=== PATIENT | female | born 1940 | race Caucasian/White ===

== ENCOUNTER 2016-12-27 09:49 | Emergency (ER) | payer MEDICARE, OTHER ==
--- NOTE | 2016-12-27 17:26 | ER ---
Date of Service: 12/27/2016 REASON FOR VISIT: Numbness and weakness of left leg. HISTORY: A 76-year-old white female presents ambulatory to the emergency room with the help of a cane for assessment of numbness in the left leg. Symptoms initially began on Friday when she was driving home from [place]. She felt like she was "drunk," felt dizzy, lightheaded, and off balanced, and had difficult time driving home, but did make it. No visual changes at that time. No hearing loss. No tinnitus. She went to the clinic on Friday to have this assessed and again felt dizzy on Friday, and was diagnosed with vertigo, but no workup was done and no scans were done. She was not given any specific medication. On Friday, she had some more episodes of vertigo, but less of a problem as they had been on Friday. However, she did cancel one of her outings on Friday. On , last evening, she was not feeling well and had another episode of vertigo. No nausea or vomiting. Then, she started noticing that her left foot felt weak and limp, and the foot was dragging a little bit. Symptoms seemed to go up toward the knee. She was able to get to sleep, but woke up this morning with persistent symptoms of the left leg and also had some transient symptoms of the right hand with numbness and tingling little bit with mild weakness. These hand symptoms lasted 10 to 15 minutes. It started about 0815 hours this morning. She continued to have some vertigo symptoms today. Her left leg symptoms have improved, pretty much resolved by the time she was here, although, she still has some decreased sensation. The right hand symptoms have resolved. MEDICATIONS: Prolia for osteoporosis, Tenormin 50 mg daily, hydrochlorothiazide 25 mg daily, lisinopril 20 mg daily, aspirin 81 mg daily, ibuprofen p.r.n., and vitamin D 1000 units daily. ALLERGIES: None known. PAST MEDICAL HISTORY: Includes hypertension, osteoporosis, right total knee arthroplasty, appendectomy, and some type of vascular surgery on her right lower extremity in 2014. REVIEW OF SYSTEMS: She denies chest pain or shortness of breath. No nausea or vomiting. She did have some diarrhea on Friday, however, that has resolved. She denies any facial weakness or droop. No speech impediments noted. Vision has been okay. She does have a little bit of congestion in her throat. Her bowels have been okay since Friday. No urinary symptoms. OBJECTIVE: General: She is alert and lying in bed. Vital Signs: Initial blood pressure was 182/68 and at the time of discharge it was 135/62, pulse was 61, temperature was 96.6, respirations 16, O2 sats 99%. HEENT: PERRLA, EOMI. TMs are negative. Throat is clear. Neck: No adenopathy. She has full range of motion without pain. Heart: Regular rate and rhythm. There is an occasional extra beat. No murmur heard. Lungs: Clear to auscultation. Abdomen: Soft and nontender. No masses palpable. Extremities: Warm and dry. No edema. Neurologic: Deep tendon reflexes are symmetrical. Motor function in all 4 extremities is normal. There is some decreased sensation of the right lower extremity from about the upper heath distally. Cranial nerves are intact. LABORATORY DATA: CT scan of her head noncontrast was done that showed mild small vessel disease on the left side, but no acute changes and no hemorrhage noted. EKG showed a normal sinus rhythm. On the rhythm strip, there is an occasional PAC. White count 4.6, hemoglobin 12.7. Sodium 132, potassium 4.2, creatinine is 1.2, magnesium is 1.6. LFTs are normal. ASSESSMENT: Acute neurologic changes, probable transient ischemic attack. PLAN: 1. The patient is reassured. I feel she is stable for discharge back to home environment. 2. Follow up with her primary provider, Dr. Turner, next week. 3. Recommend CT angiogram of her head and neck and also an MRI of her head to complete her evaluation. 4. Continue her home medications. 5. Call or return if any problems or concerns. Handout regarding TIA information given. FM: 12/27/2016 11:36:38 MODL: 12/27/2016 17:04:19 /[id number]
[2016-12-27 17:50] VITALS: BP 135/62
== END 2016-12-27 11:39 | disposition home or self-care (01) ==
LOC: VM.ED 09:49
DX: R29.818 Other symptoms and signs involving the nervous system (principal); I10 Essential (primary) hypertension; M81.0 Age-related osteoporosis without current pathological fracture; Z96.651 Presence of right artificial knee joint; Z79.899 Other long term (current) drug therapy; Z79.82 Long term (current) use of aspirin
CPT/HCPCS: 36415; 70450; 80053; 83735; 85025; 93005; 99284; 99284-GF

== ENCOUNTER 2016-12-30 10:21 | Emergency (ER) | payer MEDICARE, OTHER ==
[2016-12-30] MEDS ORDERED: Sodium Chloride 0.9% 10 ML Syringe FLUSH PRN (10:56)
--- NOTE | 2016-12-30 10:58 | EDM.PDOC ---
ED HPI GENERAL MEDICAL PROBLEM - General Chief Complaint: General Stated Complaint: foggy head and weak legs Time Seen by Provider: 12/30/16 10:32 Source of Information: Reports: Patient History Limitations: Reports: No limitations - History of Present Illness INITIAL COMMENTS - FREE TEXT/NARRATIVE: Patient seen last week in the clinic for similar symptoms. Was diagnosed with vertigo with no other follow up or work up noted. She was also seen 12/27 for one sided weakness and the provider at that time felt she may have had a TIA with no acute ischemia seen on head CT at that time. She does have a follow up appointment tomorrow with her primary doctor to have a referral for additional testing. Initial presentation of her blood pressure had her systolic numbers in the 180's. This was also elevated on Friday to a similar number. Former smoker. Onset Date: 12/24/16 Location: Reports: generalized Quality: Reports: Same as previous episode Severity: moderate Associated Symptoms: Reports: other (head feels fuzzy, legs feel weak bilaterally) - Related Data Allergies Allergy/AdvReac Type Severity Reaction Status Date / Time No Known Allergies Allergy Verified 12/30/16 10:36 Home Meds: Home Meds Aspirin [Adult Low Dose Aspirin EC] 81 mg PO DAILY 12/27/16 [History] Atenolol [Atenolol] 1 tab PO DAILY 12/27/16 [History] Cholecalciferol (Vitamin D3) [Vitamin D3] 1,000 unit PO DAILY 12/27/16 [History] Denosumab [Prolia] 1 dose SQ Q6M 12/27/16 [History] Hydrochlorothiazide [Hydrochlorothiazide] 1 tab PO DAILY 12/27/16 [History] Ibuprofen 200 mg PO ASDIRECTED PRN 12/27/16 [History] Lisinopril 20 mg PO DAILY 12/27/16 [History] Social & Family History - Tobacco Use Smoking Status *Q: Current Every Day Smoker Years of Tobacco use: 50 Packs/Tins Daily: 0.2 - Recreational Drug Use Recreational Drug Use: No ED ROS GENERAL - Review of Systems Review Of Systems: ROS reveals no pertinent complaints other than HPI. Constitutional: Reports: no symptoms HEENT: Reports: No symptoms Respiratory: Reports: No Symptoms Cardiovascular: Reports: No symptoms Endocrine: Reports: no symptoms GI/Abdominal: Reports: No symptoms : Reports: no symptoms Musculoskeletal: Reports: no symptoms Skin: Reports: no symptoms Neurological: Reports: Weakness, Other (lightheaded) Psychiatric: Reports: No symptoms Hematologic/Lymphatic: Reports: no symptoms Immunologic: Reports: no symptoms ED EXAM, GENERAL - Physical Exam Exam: See Below Exam Limited By: No limitations General Appearance: alert, WD/WN, no apparent distress Eye Exam: bilateral eye: EOMI, PERRL Ears: normal TMs Throat/Mouth: Normal inspection, Normal oropharynx Head: atraumatic, normocephalic Neck: normal inspection, supple, non-tender, full range of motion. No: carotid bruit Respiratory/Chest: no respiratory distress, lungs clear, normal breath sounds, no accessory muscle use, chest non-tender Cardiovascular: normal peripheral pulses, regular rate, rhythm, no edema, no gallop Peripheral Pulses: 2+: posterior tibial (L), posterior tibial (R), dorsalis pedis (L), dorsalis pedis (R) GI/Abdominal: normal bowel sounds, soft, non tender, no organomegaly Extremities: normal inspection, normal range of motion, normal capillary refill Neurological: alert, oriented, CN II-XII intact, normal cognition, normal gait, normal reflexes, no motor/sensory deficits Psychiatric: normal affect, normal mood Skin Exam: Warm, Dry, Intact, Normal color, No rash Lymphatic: no adenopathy Course - Vital Signs Last Recorded V/S: Last Vital Signs Temp 36.4 C 12/30/16 10:21 Pulse 70 12/30/16 11:12 Resp 18 12/30/16 11:12 BP 156/73 H 12/30/16 11:12 Pulse Ox 98 12/30/16 11:12 - Orders/Labs/Meds Orders: Active Orders 24 hr Category Date Time Status Sodium Chloride 0.9% [Normal Saline] 1,000 ml Med 12/30/16 11:00 Active IV ASDIRECTED Sodium Chloride 0.9% [Saline Flush] Med 12/30/16 10:56 Active 10 ml FLUSH ASDIRECTED PRN Saline Lock Insert [OM.PC] Routine Oth 12/30/16 10:56 Ordered Medication Orders Sodium Chloride (Normal Saline) 1,000 mls @ 999 mls/hr IV ASDIRECTED RICK Last Admin: 12/30/16 11:10 Dose: 999 mls/hr Sodium Chloride (Saline Flush) 10 ml FLUSH ASDIRECTED PRN PRN Reason: Keep Vein Open Labs: Laboratory Tests 12/30/16 12/30/16 12/30/16 Range/Units 10:58 10:58 10:58 WBC 5.8 (4.0-10.0) x10^3/uL RBC 4.60 (4.00-5.50) x10^6/uL Hgb 13.4 (12.0-16.0) g/dL Hct 39.3 (33.0-47.0) % MCV 85.4 (78.0-93.0) fL MCH 29.1 (26.0-32.0) pg MCHC 34.1 (32.0-36.0) g/dL RDW Coeff of Serg 13.7 (10.0-15.0) % Plt Count 345 (130-400) x10^3/uL Neut % (Auto) 64.7 (50.0-80.0) % Lymph % (Auto) 17.4 L (25.0-50.0) % [place] % (Auto) 16.4 H (2.0-11.0) % Eos % (Auto) 1.2 (0.0-4.0) % Baso % (Auto) 0.3 (0.2-1.2) % PT 9.5 L (10.0-12.8) SEC INR 0.8 L (2.0-3.5) D-Dimer, Quantitative 1.24 H (<=0.58) mg/LFEU Sodium 130 L (136-145) mmol/L Potassium 3.9 (3.5-5.1) mmol/L Chloride 95 L (98-107) mmol/L Carbon Dioxide 25 (21-32) mmol/L BUN 17 (7-18) mg/dL Creatinine 1.0 (0.55-1.02) mg/dL Est Cr Clr Drug Dosing TNP Estimated GFR (MDRD) 54 Glucose 94 (74-106) mg/dL Calcium 9.0 (8.5-10.1) mg/dL Corrected Calcium 9.48 (8.5-10.1) mg/dL Magnesium 1.6 L (1.8-2.4) mg/dL Total Bilirubin 0.3 (0.2-1.0) mg/dL AST 17 (15-37) U/L ALT 23 (14-59) U/L Alkaline Phosphatase 54 (46-116) U/L B-Natriuretic Peptide 343 (<=450) pg/mL Total Protein 7.0 (6.4-8.2) g/dL Albumin 3.4 (3.4-5.0) g/dL Globulin 3.6 Albumin/Globulin Ratio 0.94 Meds: Medications Generic Name Dose Route Start Last Admin Trade Name Freq PRN Reason Stop Dose Admin Sodium Chloride 1,000 mls @ 999 mls/hr 12/30/16 11:00 12/30/16 11:10 Normal Saline IV 999 mls/hr ASDIRECTED RICK Administration Sodium Chloride 10 ml 12/30/16 10:56 Saline Flush FLUSH ASDIRECTED PRN Keep Vein Open Discontinued Medications Generic Name Dose Route Start Last Admin Trade Name Freq PRN Reason Stop Dose Admin Magnesium Sulfate 2 gm/ Premix 50 mls @ 50 mls/hr 12/30/16 11:57 12/30/16 12: 18 IV 12/30/16 12:56 50 mls/hr ONETIME ONE Administration Magnesium Chloride 64 mg 12/30/16 11:56 12/30/16 12:13 Mag-64 PO 12/30/16 11:57 64 mg ONETIME ONE Administration Departure - Departure Time of Disposition: 13:38 Disposition: Home, Self-Care 01 Condition: fair Clinical Impression: Hypomagnesemia, Hypomagnesemia Instructions: Muscle Cramps and Spasms, [id number], Hypomagnesemia Forms: ED Department Discharge Additional Instructions: Follow up with GG in the morning as scheduled. One of the causes of low magnesium is the use of thiazide diuretics like the HCTZ so she may want to decide to reduce the dose and add a loop diuretic like lasix. Please talk to her regarding this. Some of your muscle complaints could be linked to this. Your sodium is also low. You should also have this monitored from time to time. Tests that you should consider for the prior possible TIA include MRI/MRA, carotid ultrasound, echocardiogram, CTA with contrast of the brain. Please call us with any questions or concerns in the meantime. - Problem List & Annotations (1) Hypomagnesemia SNOMED Code(s): 843000859 Code(s): E83.42 - HYPOMAGNESEMIA Status: Acute Priority: Medium Current Visit: Yes - Problem List Review Problem List Initiated/Reviewed/Updated: Yes - My Orders Last 24 Hours: My Active Orders 12/30/16 10:56 Sodium Chloride 0.9% [Saline Flush] 10 ml FLUSH ASDIRECTED PRN Saline Lock Insert [OM.PC] Routine 12/30/16 11:00 Sodium Chloride 0.9% [Normal Saline] 1,000 ml IV ASDIRECTED - Assessment/Plan Last 24 Hours: My Active Orders 12/30/16 10:56 Sodium Chloride 0.9% [Saline Flush] 10 ml FLUSH ASDIRECTED PRN Saline Lock Insert [OM.PC] Routine 12/30/16 11:00 Sodium Chloride 0.9% [Normal Saline] 1,000 ml IV ASDIRECTED Assessment:: Hypomagnesemia Plan: Follow up with GG in the morning as scheduled. One of the causes of low magnesium is the use of thiazide diuretics like the HCTZ so she may want to decide to reduce the dose and add a loop diuretic like lasix. Please talk to her regarding this. Some of your muscle complaints could be linked to this. Your sodium is also low. You should also have this monitored from time to time. Tests that you should consider for the prior possible TIA include MRI/MRA, carotid ultrasound, echocardiogram, CTA with contrast of the brain. Please call us with any questions or concerns in the meantime.
[2016-12-30] MEDS ORDERED: Sodium Chloride 0.9% 1,000 ML IV SCH (11:00)
[2016-12-30 11:33] LABS: CHLORIDE,CL 95 mmol/L (98-107); SODIUM,NA 130 mmol/L (136-145)
[2016-12-30] MEDS ORDERED: Magnesium Chloride 64 MG Tab.ER PO ONE (11:56)
[2016-12-30] MEDS ORDERED: Magnesium Sulfate/Water 2 GM in Premix Bag 1 BAG IV ONE (11:57)
[2016-12-30 13:27] VITALS: BP 129/62
== END 2016-12-30 13:38 | disposition home or self-care (01) ==
LOC: VM.ED 10:21
DX: E83.42 Hypomagnesemia (principal); F17.210 Nicotine dependence, cigarettes, uncomplicated; Z79.82 Long term (current) use of aspirin; Z79.899 Other long term (current) drug therapy
CPT/HCPCS: 80053; 83735; 83880; 85025; 85379; 85610; 96361; 96365; 99285; A9270; J7030; 99284-GF; J3475

== ENCOUNTER 2021-01-12 04:25 | Inpatient (IN) | payer MEDICARE, OTHER ==
[2021-01-12] MEDS ORDERED: Lactated Ringers 1,000 ML IV ONE (04:36)
[2021-01-12] MEDS ORDERED: predniSONE 20 MG Tab PO ONE (04:38)
--- NOTE | 2021-01-12 04:42 | EDM.PDOC ---
ED HPI GENERAL MEDICAL PROBLEM - General Chief Complaint: Skin Complaint Stated Complaint: Hives, near syncope, lightheaded Time Seen by Provider: 01/12/21 04:30 Source of Information: Reports: Patient, EMS History Limitations: Reports: No Limitations - History of Present Illness INITIAL COMMENTS - FREE TEXT/NARRATIVE: Patient comes emergency department today from home by ambulance with complaints of lightheadedness and a near syncopal episode. For the past 2 days the patient has noticed that she has had a rash kind of generalized throughout her chest arms and lower extremities. It is itchy in nature. She has been taking some Benadryl with assistance of the itching but the rash is not improved. She initially thought it was shingles but after researching it online she realized that it was most likely hives. She has had no changes in medications or new exposures to any irritants. She has no difficulty breathing shortness of breath tightness in her throat. She does chronically struggle with some lightheadedness upon standing although it does resolve shortly after standing. Although the past 2 to 3 days she has needed to walk around the house with a chair with casters on it because she is so lightheaded unsteady and weak. She has not had any chest pain shortness of breath or difficulty breathing. No cough or congestion. No palpitations. No irregular heartbeat. No abdominal pain nausea or vomiting. She has had a rash in her groin as well. No hematuria dysuria or urinary frequency. No black or tarry stools. No diarrhea. She does have a history of colitis. Tonight at approximately 3:00 she got up to go to the bathroom when she stood up she felt more lightheaded and she felt that she did not lose consciousness but was so weak and fell to the ground. She did not hit her head. There was no loss of conscious. She has no head neck or back pain. She did not have any palpitations or complaints prior to her syncope other than the lightheadedness. She relates that she typically drinks about 12 to 14 cups of coffee a day but she has not felt well the last couple of days and has only drink 2 cups of coffee. She has not drink much for fluids the past couple days as well. No Covid exposure no Covid symptoms. She has received her Covid vaccine. Hip Pain Score (Numeric/FACES): 3 - Related Data Allergies Allergy/AdvReac Type Severity Reaction Status Date / Time No Known Allergies Allergy Verified 09/01/18 13:26 Home Meds: Home Meds Aspirin [Adult Low Dose Aspirin EC] 81 mg PO DAILY 12/27/16 [History] Cholecalciferol (Vitamin D3) [Vitamin D3] 1,000 unit PO DAILY 12/27/16 [History] Loperamide [Imodium] 2 mg PO ASDIRECTED PRN MDD 8 caps 09/01/18 [History] atenoloL [Tenormin] 100 mg PO DAILY tablet 09/02/18 [Rx] Cyanocobalamin (Vitamin B-12) [Vitamin B-12] 1,000 mcg PO DAILY 01/12/21 [History] Gabapentin [Neurontin] 200 mg PO BEDTIME 01/12/21 [History] Magnesium Chloride [Slow-Mag] 71.5 mg PO DAILY 01/12/21 [History] atorvaSTATin [Lipitor] 10 mg PO BEDTIME 01/12/21 [History] Acetaminophen [Tylenol] 650 mg PO Q4H PRN tablet 01/16/21 [Rx] Famotidine [Pepcid] 20 mg PO DAILY #30 tablet 01/16/21 [Rx] Nystatin [Nystatin Crm] 0 gm TOP BID tube 01/16/21 [Rx] Potassium Chloride [Klor-Con 10] 20 meq PO WITHBREAKFAST #30 tab.er 01/16/21 [Rx] Sodium Chloride/KCl [Thermotabs] 1 each PO BID #60 tablet 01/16/21 [Rx] atenoloL [Tenormin] 25 mg PO DAILY #30 tablet 01/16/21 [Rx] hydrOXYzine HCL [hydrOXYzine] 25 mg PO Q4H PRN #50 tablet 01/16/21 [Rx] predniSONE See Taper PO WITHBREAKFAST #15 tablet 01/16/21 [Rx] Past Medical History Cardiovascular History: Reports: High Cholesterol, Hypertension Gastrointestinal History: Reports: Other (See Below) Other Gastrointestinal History: Colitis [employer] History: Reports: Musculoskeletal History: Reports: Osteoporosis Dermatologic History: Reports: Eczema - Infectious Disease History Infectious Disease History: Reports: Measles, Shingles - Past Surgical History Cardiovascular Surgical History: Reports: Varicose, Other (See Below) GI Surgical History: Reports: Appendectomy, Colonoscopy Female Surgical History: Reports: Oophorectomy Musculoskeletal Surgical History: Reports: Knee Replacement, Other (See Below) Other Musculoskeletal Surgeries/Procedures:: Both knees Dermatological Surgical History: Reports: None, Plastic Surgical Reconstruction/Repair Social & Family History - Family History Family Medical History: No Pertinent Family History - Caffeine Use Caffeine Use: Reports: Coffee ED ROS GENERAL - Review of Systems Review Of Systems: Comprehensive ROS is negative, except as noted in HPI. ED EXAM, SKIN/RASH Exam: See Below Exam Limited By: No Limitations General Appearance: Alert, WD/WN, No Apparent Distress Eye Exam: Bilateral Eye: EOMI, PERRL Ears: Normal External Exam, Normal TMs Nose: Normal Inspection Throat/Mouth: Normal Inspection (Other than quite dry. ) Head: Atraumatic, Normocephalic Neck: Normal Inspection, Supple, Non-Tender, Full Range of Motion. No: Tender Lateral, Tender Midline Respiratory/Chest: No Respiratory Distress, Lungs Clear, Normal Breath Sounds, No Accessory Muscle Use, Chest Non-Tender Cardiovascular: Normal Peripheral Pulses, Regular Rate, Rhythm Course - Vital Signs Last Recorded V/S: Last Vital Signs Temp 97 F 01/16/21 10:00 Pulse 64 01/16/21 10:00 Resp 18 01/16/21 05:10 BP 118/94 H 01/16/21 10:00 Pulse Ox 100 01/16/21 10:00 - Orders/Labs/Meds Labs: Laboratory Tests 01/12/21 01/12/21 01/12/21 Range/Units 04:46 04:46 04:46 WBC 10.0 (4.0-10.0) x10^3/uL RBC 4.63 (4.00-5.50) x10^6/uL Hgb 13.4 D (12.0-16.0) g/dL Hct 38.0 (33.0-47.0) % MCV 82.1 D (78.0-93.0) fL MCH 28.9 (26.0-32.0) pg MCHC 35.3 (32.0-36.0) g/dL RDW Coeff of Serg 13.7 (10.0-15.0) % Plt Count 416 H (130-400) x10^3/uL Add Manual Diff Yes Neutrophils % (Manual) 80 (50-80) % Band Neutrophils % 4 (0-6) % Lymphocytes % (Manual) 11 L (25-50) % Monocytes % (Manual) 4 (2-11) % Eosinophils % (Manual) 1 (0-4) % Platelet Estimate Adequate Sodium 120 L* (136-145) mmol/L Potassium 3.6 (3.5-5.1) mmol/L Chloride 86 L (98-107) mmol/L Carbon Dioxide 23 (21-32) mmol/L Anion Gap 14.6 (5-15) mmol/L BUN 30 H (7-18) mg/dL Creatinine 1.8 H (0.55-1.02) mg/dL Est Cr Clr Drug Dosing TNP Estimated GFR (MDRD) 27 Glucose 117 H (70-99) mg/dL Serum Osmolality (275-295) mosm/kg Lactic Acid 1.6 (0.4-2.0) mmol/L Calcium 8.5 (8.5-10.1) mg/dL Corrected Calcium 9.38 (8.5-10.1) mg/dL Magnesium (1.8-2.4) mg/dL Total Bilirubin 0.5 (0.2-1.0) mg/dL AST 15 (15-37) U/L ALT 20 (14-59) U/L Alkaline Phosphatase 52 (46-116) U/L Troponin I High Sens 20 (<=51) ng/L C-Reactive Protein 1.2 H (<=0.9) mg/dL Total Protein 5.8 L (6.4-8.2) g/dL Albumin 2.9 L (3.4-5.0) g/dL Globulin 2.9 Albumin/Globulin Ratio 1.00 Urine Color (YELLOW) Urine Appearance (CLEAR) Urine pH (5.0-8.0) Ur Specific Harshaw Urine Protein (NEGATIVE) mg/dL Urine Glucose (UA) (NEGATIVE) mg/dL Urine Ketones (NEGATIVE) mg/dL Urine Occult Blood (NEGATIVE) Urine Nitrite (NEGATIVE) Urine Bilirubin (NEGATIVE) Urine Urobilinogen (0.2) EU/dL Ur Leukocyte Esterase (NEGATIVE) Urine Osmolality (300-900) mosm/kg SARS CoV-2 RNA Rapid EZEKIEL (NEGATIVE) 01/12/21 01/12/21 01/12/21 Range/Units 04:46 04:46 05:08 WBC (4.0-10.0) x10^3/uL RBC (4.00-5.50) x10^6/uL Hgb (12.0-16.0) g/dL Hct (33.0-47.0) % MCV (78.0-93.0) fL MCH (26.0-32.0) pg MCHC (32.0-36.0) g/dL RDW Coeff of Serg (10.0-15.0) % Plt Count (130-400) x10^3/uL Add Manual Diff Neutrophils % (Manual) (50-80) % Band Neutrophils % (0-6) % Lymphocytes % (Manual) (25-50) % Monocytes % (Manual) (2-11) % Eosinophils % (Manual) (0-4) % Platelet Estimate Sodium (136-145) mmol/L Potassium (3.5-5.1) mmol/L Chloride (98-107) mmol/L Carbon Dioxide (21-32) mmol/L Anion Gap (5-15) mmol/L BUN (7-18) mg/dL Creatinine (0.55-1.02) mg/dL Est Cr Clr Drug Dosing Estimated GFR (MDRD) Glucose (70-99) mg/dL Serum Osmolality 252 L (275-295) mosm/kg Lactic Acid (0.4-2.0) mmol/L Calcium (8.5-10.1) mg/dL Corrected Calcium (8.5-10.1) mg/dL Magnesium 1.4 L (1.8-2.4) mg/dL Total Bilirubin (0.2-1.0) mg/dL AST (15-37) U/L ALT (14-59) U/L Alkaline Phosphatase (46-116) U/L Troponin I High Sens (<=51) ng/L C-Reactive Protein (<=0.9) mg/dL Total Protein (6.4-8.2) g/dL Albumin (3.4-5.0) g/dL Globulin Albumin/Globulin Ratio Urine Color Yellow (YELLOW) Urine Appearance Clear (CLEAR) Urine pH 6.0 (5.0-8.0) Ur Specific Harshaw 1.015 Urine Protein Negative (NEGATIVE) mg/dL Urine Glucose (UA) Negative (NEGATIVE) mg/dL Urine Ketones Negative (NEGATIVE) mg/dL Urine Occult Blood Negative (NEGATIVE) Urine Nitrite Negative (NEGATIVE) Urine Bilirubin Negative (NEGATIVE) Urine Urobilinogen 0.2 (0.2) EU/dL Ur Leukocyte Esterase Negative (NEGATIVE) Urine Osmolality (300-900) mosm/kg SARS CoV-2 RNA Rapid EZEKIEL (NEGATIVE) 01/12/21 01/12/21 Range/Units 05:08 05:19 WBC (4.0-10.0) x10^3/uL RBC (4.00-5.50) x10^6/uL Hgb (12.0-16.0) g/dL Hct (33.0-47.0) % MCV (78.0-93.0) fL MCH (26.0-32.0) pg MCHC (32.0-36.0) g/dL RDW Coeff of Serg (10.0-15.0) % Plt Count (130-400) x10^3/uL Add Manual Diff Neutrophils % (Manual) (50-80) % Band Neutrophils % (0-6) % Lymphocytes % (Manual) (25-50) % Monocytes % (Manual) (2-11) % Eosinophils % (Manual) (0-4) % Platelet Estimate Sodium (136-145) mmol/L Potassium (3.5-5.1) mmol/L Chloride (98-107) mmol/L Carbon Dioxide (21-32) mmol/L Anion Gap (5-15) mmol/L BUN (7-18) mg/dL Creatinine (0.55-1.02) mg/dL Est Cr Clr Drug Dosing Estimated GFR (MDRD) Glucose (70-99) mg/dL Serum Osmolality (275-295) mosm/kg Lactic Acid (0.4-2.0) mmol/L Calcium (8.5-10.1) mg/dL Corrected Calcium (8.5-10.1) mg/dL Magnesium (1.8-2.4) mg/dL Total Bilirubin (0.2-1.0) mg/dL AST (15-37) U/L ALT (14-59) U/L Alkaline Phosphatase (46-116) U/L Troponin I High Sens (<=51) ng/L C-Reactive Protein (<=0.9) mg/dL Total Protein (6.4-8.2) g/dL Albumin (3.4-5.0) g/dL Globulin Albumin/Globulin Ratio Urine Color (YELLOW) Urine Appearance (CLEAR) Urine pH (5.0-8.0) Ur Specific Harshaw Urine Protein (NEGATIVE) mg/dL Urine Glucose (UA) (NEGATIVE) mg/dL Urine Ketones (NEGATIVE) mg/dL Urine Occult Blood (NEGATIVE) Urine Nitrite (NEGATIVE) Urine Bilirubin (NEGATIVE) Urine Urobilinogen (0.2) EU/dL Ur Leukocyte Esterase (NEGATIVE) Urine Osmolality 319 (300-900) mosm/kg SARS CoV-2 RNA Rapid EZEKIEL Negative (NEGATIVE) Meds: Medications Discontinued Medications Generic Name Dose Route Start Last Admin Trade Name Freq PRN Reason Stop Dose Admin Acetaminophen 650 mg 01/12/21 08:53 01/15/21 07:50 Acetaminophen 325 Mg Tab PO 650 mg Q4H PRN Administration Pain (Mild 1-3)/fever Atenolol 100 mg 01/13/21 08:00 Atenolol 50 Mg Tab PO DAILY RICK Atenolol 25 mg 01/13/21 08:00 01/13/21 09:45 Atenolol 25 Mg Tab PO Not Given DAILY RICK Atenolol 50 mg 01/13/21 09:15 01/14/21 08:13 Atenolol 50 Mg Tab PO 50 mg DAILY RICK Administration Atenolol 25 mg 01/15/21 08:00 01/16/21 08:20 Atenolol 50 Mg Tab PO 25 mg DAILY RICK Administration Ceftriaxone Sodium 1 gm 01/12/21 05:10 01/12/21 05:23 Ceftriaxone 1 Gm Vial IVPUSH 01/12/21 05:11 1 gm STAT ONE Administration Diphenhydramine HCl 25 mg 01/12/21 12:00 01/16/21 08:23 Diphenhydramine 25 Mg Cap PO Not Given TID RICK Enoxaparin Sodium 40 mg 01/13/21 08:00 01/16/21 08:17 Enoxaparin 40 Mg/0.4 Ml Syringe SUBCUT 40 mg DAILY RICK Administration Famotidine 20 mg 01/12/21 09:00 01/16/21 08:20 Famotidine 20 Mg Tab PO 20 mg DAILY RICK Administration Gabapentin 200 mg 01/12/21 20:00 01/15/21 21:06 Gabapentin 100 Mg Cap PO 200 mg BEDTIME RICK Administration Hydroxyzine HCl 25 mg 01/16/21 08:09 01/16/21 08:24 Hydroxyzine Hcl 25 Mg Tab PO 25 mg Q4H PRN Administration Itching Lactated Ringer's 1,000 mls @ 999 mls/hr 01/12/21 04:36 01/12/21 04:54 Ringers, Lactated IV 01/12/21 05:36 999 mls/hr ONETIME ONE Administration Sodium Chloride 1,000 mls @ 999 mls/hr 01/12/21 05:07 01/12/21 05:14 Normal Saline IV 01/12/21 06:07 999 mls/hr ONETIME ONE Administration Magnesium Sulfate 2 gm in 50 mls @ 25 mls/hr 01/12/21 05:45 01/12/21 05:51 Magnesium Sulfate In Water 2 Gm/50 Ml IV 01/12/21 07:44 25 mls/hr ONETIME ONE Administration Sodium Chloride 1,000 mls @ 100 mls/hr 01/12/21 09:45 01/12/21 12:29 Normal Saline IV 01/12/21 19:44 100 mls/hr ASDIRECTED RICK Administration Sodium Chloride 500 mls @ 50 mls/hr 01/12/21 17:00 01/12/21 17:52 Sodium Chloride 3% IV 01/12/21 18:01 50 mls/hr ASDIRECTED RICK Administration Loperamide HCl 2 mg 01/12/21 08:49 Loperamide 2 Mg Cap PO ASDIRECTED PRN Diarrhea Magnesium Chloride 64 mg 01/13/21 08:00 01/16/21 08:19 Magnesium Chloride 64 Mg Tab.Er PO 64 mg DAILY RICK Administration Methylprednisolone Sodium Succinate 125 mg 01/12/21 05:17 01/12/21 05:21 Methylprednisolone Sodium Succinate 125 Mg/2 Ml Sdv IVPUSH 01/12/21 05:18 125 mg ONETIME ONE Administration Methylprednisolone Sodium Succinate 40 mg 01/14/21 10:15 01/15/21 07:48 Methylprednisolone Sodium Succinate 40 Mg/1 Ml Sdv IVPUSH 40 mg Q12HR RICK Administration Nystatin 0 gm 01/12/21 09:00 01/16/21 08:18 Nystatin Crm 30 Gm Tube TOP 1 dose BID RICK Administration Oral Electrolytes 1 each 01/12/21 17:00 01/16/21 08:18 Sodium Chloride/Potassium Chloride Tab PO 1 each BID RICK Administration Potassium Chloride 20 meq 01/13/21 13:22 01/16/21 08:19 Potassium Chloride 10 Meq Tab.Er PO 20 meq WITHBREAKFAST RICK Administration Prednisone 20 mg 01/12/21 04:38 01/12/21 08:02 Prednisone 20 Mg Tab PO 01/12/21 04:39 Not Given ONETIME ONE Prednisone 40 mg 01/15/21 08:30 01/16/21 08:19 Prednisone 20 Mg Tab PO 40 mg WITHBREAKFAST RICK Administration Sodium Chloride 10 ml 01/12/21 04:35 01/15/21 07:48 Sodium Chloride 0.9% 10 Ml Syringe FLUSH 10 ml ASDIRECTED PRN Administration Keep Vein Open - Re-Assessments/Exams Free Text/Narrative Re-Assessment/Exam: Patient's EKG is unchanged from previous. We did complete orthostatic blood pressures which were very clearly positive. She was unable to stand even long enough to get her blood pressure but her heart rate did increase. She was given a 500 mill bolus of lactated Ringer's. Laboratory evaluation shows a CBC with a WBC of 10.0 hemoglobin 13.4 and a platelet of 416. Sodium critically low at 120, potassium 3.6 chloride 86 creatinine 1.8 with a BUN of 30 this is slightly up from baseline of about 1.2-1.3. Serum osmolality is 252. Magnesium is 1.4 Urinalysis is negative Covid is negative as well. She has no signs of confusion or seizures although she does have a quite low sodium. She is also on hydrochlorothiazide which could be leading to her hyponatremia she has had hyponatremia in the past. I do not feel that she needs initially 3% hypertonic saline as her blood pressure is quite low and she could use some volume at this time. Her magnesium was replaced as well. Her blood pressure responded after a fluid bolus and then continued maintenance fluid. This patient needs close monitoring for her severe hyponatremia I called and spoke with Dr. Abundio Gaona HPI ER COURSE findings and concerns were relayed to her. She came and saw the patient in the ed and will admit for inpatient management. Departure - Departure Time of Disposition: 05:19 Disposition: Admitted As Inpatient 65 Clinical Impression: Acute hyponatremia, Nighat infection of genital region, Hives, Hypomagnesemia Hypotension Qualifiers: Hypotension type: unspecified hypotension type Qualified Code(s): I95.9 - Hypotension, unspecified [id number] kidney injury Qualifiers: Acute renal failure type: unspecified Chronic kidney disease stage: unspecified stage Qualified Code(s): N17.9 - Acute kidney failure, unspecified - Discharge Information Sepsis Event Note (ED) - Evaluation Sepsis Screening Result: No Definite Risk
--- NOTE | 2021-01-12 04:44 | PCM.EKG ---
#1 Interpretation EKG Date: 01/12/21 Time: 04:38 Rhythm: NSR Rate (Beats/Min): 65 [place]: Normal P-Wave: Present QRS: Normal ST-T: Normal QT: Normal Comparison: No Change
[2021-01-12] MEDS ORDERED: Sodium Chloride 0.9% 1,000 ML IV ONE (05:07)
[2021-01-12] MEDS ORDERED: cefTRIAXone 1 GM Vial IVPUSH ONE (05:10)
[2021-01-12] MEDS ORDERED: methylPREDNISolone Sodium Succinate 125 MG/2 ML SDV IVPUSH ONE (05:17)
[2021-01-12 05:23] LABS: CHLORIDE,CL 86 mmol/L (98-107)
[2021-01-12 05:25] LABS: ANION GAP 14.6 mmol/L (5-15); SODIUM,NA 120 mmol/L (136-145)
[2021-01-12] MEDS ORDERED: Magnesium Sulfate/Water 2 GM/50 ML BAG IV ONE (05:45)
--- NOTE | 2021-01-12 08:12 | CR ---
[id number] RAD/RAD Chest PA or AP 1V EXAM: RAD Chest PA or AP 1V INDICATION: HYPOTENSION COMPARISON: August 2018. DISCUSSION: Cardiomediastinal silhouette is normal in size and contour. Lungs are clear. No pleural effusion or pneumothorax. IMPRESSION: No acute findings. George Lambert MD 01/12/21 0810 Thank you for allowing us to participate in the care of your patient.
--- NOTE | 2021-01-12 08:12 | CR ---
[id number] RAD/RAD Pelvis 1V W 2V Left Hip Exam: RAD Pelvis 1V W 2V Left Hip Indication:FALL, LEFT HIP PAIN Comparison: No prior imaging for comparison. Discussion/Impression: Bones in normal alignment. No fracture, AVN, or erosive changes. Bilateral femoroacetabular osteoarthritis. Bone mineralization is normal. George Lambert MD 01/12/21 0810 Thank you for allowing us to participate in the care of your patient.
[2021-01-12] MEDS ORDERED: Loperamide 2 MG Cap PO PRN (08:49)
[2021-01-12 09:27] LABS: ANION GAP 12.6 mmol/L (5-15)
[2021-01-12] MEDS ORDERED: Sodium Chloride 0.9% 1,000 ML IV SCH (09:45)
[2021-01-12] MEDS: Nystatin Crm 30 GM Tube TOP SCH ×2 (11:34→19:54)
[2021-01-12] MEDS: diphenhydrAMINE 25 MG Cap PO SCH ×2 (11:35→19:52)
[2021-01-12] MEDS: Famotidine 20 MG Tab PO SCH (11:35)
[2021-01-12] MEDS ORDERED: Sodium Chloride 3% 500 ML IV SCH (17:00)
[2021-01-12] MEDS: Sodium Chloride/Potassium Chloride Tab PO SCH ×2 (17:46→19:52)
--- NOTE | 2021-01-12 19:23 | HP ---
CHIEF COMPLAINT: Fall with dizziness. HISTORY OF PRESENT ILLNESS: This is an 80-year-old female who normally lives at home independently, who had an episode of falling at home in her bathroom. She is not sure if she passed out or just got so dizzy, she sort of sat down. X- rays did not show any hip fracture. She is not having any other pain. She has really felt unwell for the last few days and has not been eating and drinking well, but no vomiting. She does have chronic diarrhea from colitis. No stomach pain, but she also interestingly did break out in full body hives. No trouble breathing. She tried some Benadryl and some probably meclizine just yesterday after checking with the drug store. The patient has not had any fever or chills. No burning with urination. She has had low sodium 131 last fall and has been on hydrochlorothiazide. When she arrived in the ER, really the main concern was a sodium of just 120, but she was significantly dehydrated. She got some IV fluids and plan was to recheck to see if she needed the 3% saline. The patient does tend to drink quite a bit of coffee in a day. She has had her COVID vaccine, but quite sometime ago like a month. ALLERGIES: None. MEDICATIONS: Her medication list are amlodipine 10 mg daily, atenolol 100 mg daily, Lipitor 10 mg at bedtime, Zestril 30 mg daily, hydrochlorothiazide 25 mg daily, Neurontin 200 mg at bedtime, vitamin B12 daily, aspirin 81 mg daily, SlowMag daily, Imodium as needed, and vitamin D daily. She has not made any recent med changes. MEDICAL HISTORY: Includes previous colon polyps; moderate carotid artery stenosis, but denies any history of stroke; essential hypertension; history of gait instability and questionable diffuse connective tissue disease; remote history of smoking, quit in 2017; hyponatremia, even sodium 130 back in 2014; hypomagnesemia, which was already replaced in the ER; multiple TIAs; obesity; osteoarthritis of the shoulder. She did have a cortisone shot last month, but has had those before. Senile osteoporosis; ulcerative colitis; peripheral arterial disease, status post balloon angioplasties of the right popliteal artery; postherpetic neuralgia; hemorrhoids; hyperlipidemia; vitamin D deficiency; vitamin B12 deficiency. PAST SURGICAL HISTORY: She has had bilateral knee replacements. She has had tubal ligation, appendectomy. SOCIAL HISTORY: The patient is . She is a retired personal banking officer. She has 2 children, but 1 daughter after some pituitary gland surgery. She is a nonsmoker. Denies any current alcohol use. Did previously smoke. FAMILY HISTORY: Both parents . Her mom had a leukemia and coronary disease. REVIEW OF SYSTEMS: General: She is unaware of any weight changes. No fever or chills. HEENT: No trouble swallowing. Cardiac: No chest pain. No palpitations. Respiratory: No cough. No shortness of breath. Musculoskeletal: She has had no new aches or pains. Neurologic: She has not felt confused, but she has felt dizzy. Abdomen: As stated in the HPI. Otherwise, all systems reviewed and found to be negative unless otherwise stated. PHYSICAL EXAMINATION: Vital Signs: When I examined the patient, her blood pressure was 91/33, it actually had been 60/31 in the ER. Her weight 89.8 kg, temp 97.3, pulse 62, respiratory rate 16, and O2 of 99% on room air. General: She is in no acute distress. Heart: Regular rate and rhythm. S1, S2 without murmur. Lungs: Sounds were clear to auscultation bilaterally without crackles or wheezes. Abdomen: Positive bowel sounds. Soft, nondistended, nontender. Extremities: Warm and dry. No edema. Mental Status: She is alert and orientated x3. She is polite. She is answering questions. Gait not observed, but later it was reported that even after the IV fluids were given, she was still dizzy. LABORATORY DATA: Her workup did not show any hip x-ray, no pneumonia. EKG was a sinus bradycardia. Her lab work did show her to have white count 10, hemoglobin 13.4, platelets 416, lymphocytes 11 low, eosinophils normal. Sodium 120, potassium 3.6, chloride 86, bicarb 23, BUN 30, creatinine 1.8, glucose 117, lactic 1.6, calcium 8.5, magnesium 1.4. Bilirubin, ALT, AST, alkaline phosphatase all normal. CRP 1.2, mildly elevated. Albumin 2.9. UA completely normal, negative. COVID test negative. ASSESSMENT AND PLAN: 1. Symptomatic hyponatremia. Given the patient was dehydrated and still hypotensive, we have stopped her hydrochlorothiazide. I will continue IV fluids for 1 more liter and repeat a sodium. If symptomatic, we will give her 3% saline 50 mL for 1 hour and recheck sodium every 4 hours to ensure no over-correction. 2. Essential hypertension, now with low blood pressures. I will hold all of her antihypertensives, except the atenolol, which I will decrease to 25 mg and monitor her with telemetry to ensure no bradycardia. 3. Fall, presumably due to the hyponatremia. If this does not improve, we will do further investigations. Otherwise, she can be up and working with therapies. 4. Generalized hives. She got the Solu-Medrol. She will be on prednisone 20 mg daily. We will give her Pepcid. We will give her Benadryl. 5. Deep venous thrombosis prophylaxis. She is on Lovenox. 6. Hypomagnesemia, replaced IV. She is also on oral. We will repeat tomorrow. 7. Colitis, longstanding. She will have her p.r.n. Imodium available. 8. Concern for sepsis. She did get Rocephin, however, no source of infection was found. No further antibiotics are indicated. The patient will be admitted for acute cares for electrolyte correction. Blood sugar was mildly elevated at 146, although nonfasting. Anticipate the patient will have at least a 2-night stay, but potentially will go home over the weekend. She is a code level 1. MKA: 01/12/2021 17:06:41 MODL: 01/12/2021 19:12:40 /[id number]
[2021-01-12] MEDS: Gabapentin 100 MG Cap PO SCH (19:52)
[2021-01-13 07:53] LABS: ANION GAP 12.4 mmol/L (5-15)
[2021-01-13] MEDS ORDERED: Atenolol 25 MG Tab PO SCH (08:00)
[2021-01-13] MEDS ORDERED: Atenolol 50 MG Tab PO SCH (08:00)
[2021-01-13] MEDS: Enoxaparin 40 MG/0.4 ML Syringe SUBCUT SCH (09:43)
[2021-01-13] MEDS: Famotidine 20 MG Tab PO SCH (09:44)
[2021-01-13] MEDS: diphenhydrAMINE 25 MG Cap PO SCH ×3 (09:44→19:57)
[2021-01-13] MEDS: Magnesium Chloride 64 MG Tab.ER PO SCH (09:45)
[2021-01-13] MEDS: Sodium Chloride/Potassium Chloride Tab PO SCH ×2 (09:45→19:57)
[2021-01-13] MEDS: Nystatin Crm 30 GM Tube TOP SCH ×2 (09:45→19:58)
[2021-01-13] MEDS: Atenolol 50 MG Tab PO SCH (09:58)
--- NOTE | 2021-01-13 14:18 | PN ---
Progress Note for [facility] Date: 01/13/2021 Room #: VM.215 SUBJECTIVE: This is hospital day #2 on an 80-year-old admitted with hyponatremia, dizziness, and a fall yesterday. The patient's sodium did not improve despite normal saline as she was quite dehydrated, so she did receive 50 mL of 3% saline last evening, and this morning, her sodium went up to 128, and she is feeling much better. She had been on hydrochlorothiazide, this was discontinued. Her WANG inhibitor was held. Her atenolol was decreased due to some bradycardia, and she has not had any events. She has not had any fevers. She was not found to have any infection. The patient did have significant hives on admission, however, those have all currently resolved. Her memory has been good. Her daughter is visiting and the patient is in pleasant spirits. OBJECTIVE: Vital Signs: Her temperature is 98.6, pulse 76, blood pressure 128/42, respiratory rate 16, O2 of 96% on room air. General: She is in no acute distress. Heart: Regular rate and rhythm. Lungs: Sounds are clear to auscultation bilaterally without crackles or wheezes. Extremities: Warm and dry. No edema. Mental Status: Alert and orientated x3. Skin: Does have some resolving hives spots noted, but 85% improved since yesterday. LABORATORY DATA: White count 12, increased slightly; hemoglobin 11; platelets 398. Sodium 128, potassium 3.4, chloride 96, bicarb 23, BUN 23, creatinine 1.2, glucose 119, calcium 8.1, magnesium 1.8. ASSESSMENT AND PLAN: 1. Severe hyponatremia, symptomatic, resolving with the 3% saline. Discussed with the patient to avoid excessive caffeine and hydrochlorothiazide. She needs no further fluids and recommended not to correct too quickly, and I feel that she is not doing that currently. We will keep her one more day and recheck her lab work tomorrow. 2. Essential hypertension. Blood pressures are no longer low. We will continue her atenolol just to avoid any reflex tachycardia, but continue holding the WANG inhibitor and hydrochlorothiazide. If she needs any diuretics, we will start her on Lasix. 3. Fall, likely due to the hyponatremia. She had a left hip x-ray, but did not have any fracture. 4. Generalized hives, resolved. 5. Deep venous thrombosis prophylaxis, on Lovenox. 6. Hypomagnesemia, replaced. 7. Hypokalemia. We will start oral potassium. 8. Colitis, longstanding. She has not had any worsening diarrhea. 9. Leukocytosis, mild. There was some concern for sepsis initially. She got Rocephin, but no infection was found. Blood cultures are pending. The patient will continue acute care for electrolytes monitoring. Lab work again tomorrow. As long as neurologically improves, she will not need any further 3% saline, up in the halls t.i.d., and a bath today. She is also getting nystatin cream for her fungal infection under her breast and groin, which actually did not look too bad yesterday. MKA: 01/13/2021 13:24:58 MODL: 01/13/2021 13:51:13 /[id number]
[2021-01-13] MEDS: Potassium Chloride 10 MEQ Tab.ER PO SCH (19:52)
[2021-01-13] MEDS: Acetaminophen 325 MG Tab PO PRN (19:53)
[2021-01-13] MEDS: Gabapentin 100 MG Cap PO SCH (19:57)
[2021-01-14] MEDS: diphenhydrAMINE 25 MG Cap PO SCH ×4 (06:40→20:21)
[2021-01-14] MEDS: Enoxaparin 40 MG/0.4 ML Syringe SUBCUT SCH (08:13)
[2021-01-14] MEDS: Potassium Chloride 10 MEQ Tab.ER PO SCH (08:13)
[2021-01-14] MEDS: Atenolol 50 MG Tab PO SCH (08:13)
[2021-01-14] MEDS: Famotidine 20 MG Tab PO SCH (08:14)
[2021-01-14] MEDS: Magnesium Chloride 64 MG Tab.ER PO SCH (08:14)
[2021-01-14] MEDS: Acetaminophen 325 MG Tab PO PRN (08:14)
[2021-01-14] MEDS: Sodium Chloride/Potassium Chloride Tab PO SCH ×2 (08:14→20:21)
[2021-01-14] MEDS: Nystatin Crm 30 GM Tube TOP SCH ×2 (08:15→20:23)
[2021-01-14 08:22] LABS: ANION GAP 13.8 mmol/L (5-15)
[2021-01-14] MEDS: methylPREDNISolone Sodium Succinate 40 MG/1 ML SDV IVPUSH SCH (11:21)
[2021-01-14] MEDS: Sodium Chloride 0.9% 10 ML Syringe FLUSH PRN (11:22)
--- NOTE | 2021-01-14 11:44 | PN ---
Progress Note for [facility] Date: 01/14/2021 Room #: VM.215 SUBJECTIVE: This is hospital day #3 on an 80-year-old admitted with hypotension, dehydration, and hyponatremia with hives. The patient's hives were completely resolved yesterday after getting Solu-Medrol and prednisone, but she did not get any prednisone yesterday, and the hives are back today with itching but not quite as bad as before and she is feeling dizzy. Yesterday, she had no dizziness. Her sodium is now up to 132, which is improved. She has been eating and drinking okay. She just does not feel good. She is not having any stomach pain or nausea. Despite most of her blood pressure medications being held, her blood pressure went down to 94/36 overnight and is only 107/45 this a.m. She was on decreasing doses of atenolol, but I increased it to 50 yesterday due to elevated blood pressures. She is not having any cough. No shortness of breath. No fevers. Blood cultures are negative. OBJECTIVE: Vital Signs: Her temperature 98.2, pulse 68, blood pressure 107/45, respiratory rate 16, and O2 of 98% on room air. General: She is in no acute distress. Heart: Regular rate and rhythm. S1, S2 without murmur. Lungs: Lung sounds are clear to auscultation bilaterally without crackles or wheezes. Extremities: Warm and dry. No edema but does have patches of redness consistent with hives noted. No edema. Mental Status: She is alert and orientated x3. LABORATORY WORK: Her white count is down to 8.3, hemoglobin 11.9, and platelets 432. Sodium 132, potassium 3.8, chloride 99, bicarbonate 23, BUN 25, creatinine 1.3, glucose 97, calcium 8.2, and TSH 1.9. ASSESSMENT: 1. Severe hyponatremia, symptomatic, resolved after 50 mL of 3% saline, gradually improving. No further fluids are needed. We will add a cortisol on to blood in lab this morning, although she has had steroids given during this stay. This is for evaluation of adrenal insufficiency. We are also keeping her off her hydrochlorothiazide. 2. Essential hypertension. We will decrease her atenolol down to 25 mg daily due to hypotension. 3. Fall without severe injuries. She will be up and working with physical therapy tomorrow. 4. Dizziness, likely related to the lower blood pressures. Further workup for adrenal insufficiency is being undertaken. It may improve today with the steroids. 5. Generalized hives, which had resolved. However, being off steroids, they reoccurred. I will get her on Solu-Medrol 40 mg twice daily. 6. Deep venous thrombosis prophylaxis. She is on Lovenox. 7. Hypomagnesemia and hypokalemia, replaced. 8. Colitis, longstanding. She has not had any increase in diarrhea. 9. Leukocytosis, resolved. No signs of infection. She is on no further antibiotics. She did get Rocephin in the ER. PLAN: The patient will continue acute cares as she is quite dizzy and unsteady and not safe to return home and her hives have also reoccurred, so we will restart Solu-Medrol, and I will do lab work tomorrow. We will get her up and working with therapies. For DVT prophylaxis, she is on Lovenox. She is a code level 3. MKA: 01/14/2021 11:14:11 MODL: 01/14/2021 11:37:40 /[id number]
[2021-01-14] MEDS: Gabapentin 100 MG Cap PO SCH (20:22)
[2021-01-15] MEDS: methylPREDNISolone Sodium Succinate 40 MG/1 ML SDV IVPUSH SCH ×2 (04:53→07:48)
[2021-01-15] MEDS: Enoxaparin 40 MG/0.4 ML Syringe SUBCUT SCH (07:48)
[2021-01-15] MEDS: Atenolol 50 MG Tab PO SCH (07:48)
[2021-01-15] MEDS: Sodium Chloride 0.9% 10 ML Syringe FLUSH PRN (07:48)
[2021-01-15] MEDS: diphenhydrAMINE 25 MG Cap PO SCH ×3 (07:49→21:07)
[2021-01-15] MEDS: Famotidine 20 MG Tab PO SCH (07:50)
[2021-01-15] MEDS: Sodium Chloride/Potassium Chloride Tab PO SCH ×2 (07:50→21:07)
[2021-01-15] MEDS: Acetaminophen 325 MG Tab PO PRN (07:50)
[2021-01-15] MEDS: Potassium Chloride 10 MEQ Tab.ER PO SCH (07:50)
[2021-01-15] MEDS: Magnesium Chloride 64 MG Tab.ER PO SCH (07:50)
[2021-01-15] MEDS: Nystatin Crm 30 GM Tube TOP SCH ×2 (07:51→21:07)
--- NOTE | 2021-01-15 08:53 | PN ---
Progress Note for [facility] HY[facility] Date: 01/15/2021 Room #: VM.215 SUBJECTIVE: The patient is feeling much more weaker today. She is having tremulousness. She is noted to be more flushed on her chest and her face. She does have some blotches on her lower leg. She does feel weaker. She denies any sort of abdominal discomfort. In reviewing what types of food she has been eating recently, she has been eating strawberries, which she chronically does. She did buy some blueberries. No recent shell food intake. No nut intake. She is not coughing. No tongue or lip swelling at all. OBJECTIVE: Vital Signs: Her temperature is 36.8, pulse 77, blood pressure is 121/52, saturations are 96%, and respirations are 16. General: She is alert. She is feeling weak. She does have slight tremor of her hands. She is flushed on her face. Her trunk, front, and back does have some blotches on her upper thighs. Does have some itching. Her tongue and lips are not swollen. Heart: Regular rate and rhythm without murmurs or bruits. Lungs: Clear to auscultation with no wheezing. LABORATORY DATA: Shows her white blood cell count is stable at 8.5, hemoglobin dropped to 9.2 from 11.9 yesterday with 82 segs and 8.3 lymphs. Sodium is 133, potassium 4.2, creatinine 1.1, GFR 36, glucose 124, and calcium is 8.0. TSH is 1.99 from yesterday. IMPRESSION: 1. Hyponatremia, improved. 2. Generalized urticaria, unclear etiology. 3. Hemoglobin drop, unclear etiology. 4. Hypertension. 5. Dizziness. 6. Hypomagnesemia. 7. Chronic colitis. PLAN: We will keep her on acute care today. We will stop her IV Solu-Medrol and switch her to oral prednisone. Possibly, she could be having tremors from the Solu-Medrol and possibly flushing from the Solu-Medrol. We will have her work with physical therapy today. We will repeat lab work tomorrow. Hopefully, anticipate discharge home tomorrow. GM01/15/2021 08:17:32 MODL: 01/15/2021 08:46:45 /[id number]
[2021-01-15] MEDS: predniSONE 20 MG Tab PO SCH (08:59)
[2021-01-15] MEDS: Gabapentin 100 MG Cap PO SCH (21:06)
[2021-01-16 07:20] LABS: ANION GAP 11.9 mmol/L (5-15)
[2021-01-16] MEDS ORDERED: hydrOXYzine HCl 25 MG Tab PO PRN (08:09)
[2021-01-16] MEDS: Enoxaparin 40 MG/0.4 ML Syringe SUBCUT SCH (08:17)
[2021-01-16] MEDS: Nystatin Crm 30 GM Tube TOP SCH (08:18)
[2021-01-16] MEDS: Sodium Chloride/Potassium Chloride Tab PO SCH (08:18)
[2021-01-16] MEDS: Potassium Chloride 10 MEQ Tab.ER PO SCH (08:19)
[2021-01-16] MEDS: predniSONE 20 MG Tab PO SCH (08:19)
[2021-01-16] MEDS: Magnesium Chloride 64 MG Tab.ER PO SCH (08:19)
[2021-01-16] MEDS: Famotidine 20 MG Tab PO SCH (08:20)
[2021-01-16] MEDS: Atenolol 50 MG Tab PO SCH (08:20)
[2021-01-16] MEDS: diphenhydrAMINE 25 MG Cap PO SCH (08:23)
[2021-01-16 10:21] VITALS: BP 118/94; PULSE 64
--- NOTE | 2021-01-17 07:29 | DISCH ---
PRIMARY DIAGNOSES: 1. Severe hyponatremia. 2. Hives. 3. Anemia of unclear etiology. 4. Hypertension. 5. Weakness. 6. Hypomagnesemia. 7. Chronic longstanding colitis. 8. Hypercholesterolemia. 9. Yeast dermatitis. 10. Recent Falls. SUMMARY OF ADMIT HISTORY AND PHYSICAL: The patient is an 80-year-old female who presented to the emergency room with complaints of feeling lightheaded, near syncope, had been going on the past 2 days. She also had a rash that started on her chest and abdomen, quite itchy. She had been taking some Benadryl at home, but that had not been helping much. She was not having any shortness of breath or difficulty swallowing. No new foods. The patient also had a rash in her groin. She does drink about 12 to 14 cups of coffee a day. Has not been drinking as much fluids. Physical exam on admission, her blood pressure was 109/48, pulse was 67. DIAGNOSTIC DATA: Her lab showed her hemoglobin 13.4, white blood cell count 10.0, platelets 416. Sodium is 120, potassium 3.6, creatinine 1.8, GFR 27, glucose 117, anion gap 14.6, lactic acid 1.6, calcium 8.5. LFTs were normal. Troponin normal at 20. CRP 1.2, albumin 2.9. Urinalysis came back normal. SUMMARY OF HOSPITAL COURSE: She was given a shot of Rocephin 1 g, not certain why, and given Solu-Medrol and prednisone, and placed on acute care. She was given saline infusions. EKG was done which showed normal sinus rhythm. Chest x- ray was normal. The patient then had her blood pressure medications held of her lisinopril, hydrochlorothiazide, and amlodipine. The patient's sodium did improve to 128 by the next day. Creatinine was 1.2, hemoglobin had dropped slightly at 11.0 which was felt to be dilutional. The patient required physical therapy for strengthening. She started to have more hives and rash, so she was given more Solu-Medrol. To note, she started to get some tremulousness from it. By 01/15/2021, her hemoglobin had dropped to 9.2. Her sodium had improved greatly up to 132. Her magnesium on admit was 1.4, it was up to 1.8. Her urine had no problems with serology. Cortisol level was checked, it was normal at 23.6. TSH was checked, it was 1.9. Her hemoglobin had stabilized on 01/16/2021 to 9.1, and her white blood cell count had gone up slightly at 12.9 which was felt more related to steroid. She was switched from Solu-Medrol to oral prednisone to see if that would help with her tremulousness. Also, she was switched from Benadryl to hydroxyzine for itching. Her sodium on 01/16/2021 was up to 136, potassium was 3.9. Her potassium had been low at 3.4. Her creatinine was stable at 1.2, GFR is 48. Glucose had improved to 95. LFTs were normal. The patient's blood pressure at the time of discharge was 129/61. She was felt to be stable for discharge. The patient was placed on Lovenox for DVT prevention. MEDICATIONS: Her medications at the time of discharge will be vitamin D 1000 units 1 pill daily, aspirin 81 mg 1 pill daily, Imodium 2 mg as needed for diarrhea, atenolol 100 mg 1 pill daily, magnesium chloride 71.5 mg daily, Lipitor 10 mg 1 pill at bedtime, gabapentin 200 mg at bedtime, vitamin B12 1000 mcg capsule daily, hydroxyzine 25 mg q.4 hours p.r.n. itch, potassium chloride 20 mEq daily, nystatin cream to inguinal areas b.i.d., Pepcid 20 mg 1 pill daily, atenolol 25 mg 1 pill daily, Thermotabs 1 pill twice a day, Tylenol 325 two q.4 hours p.r.n., prednisone taper which will be 40 mg daily for 3 days, then 30 mg daily for 3 days, 20 mg daily for 3 days, 10 mg daily for 3 days, then stop. The patient will return to see me in the clinic in a weeks' time. Her code level status is do not resuscitate/do not intubate. Over 30 minutes time was spent doing discharge of the patient. GM01/16/2021 08:33:31 MODL: 01/16/2021 18:13:25 /[id number]
== END 2021-01-16 14:05 | disposition home or self-care (01) | DRG 641 ==
LOC: VM.ED 04:25 → VM.MS 07:16
PROVIDERS: ADMIT Internal Medicine; ATTEND Family Medicine
DX: E87.1 Hypo-osmolality and hyponatremia (principal); B37.49 Other urogenital candidiasis; N17.9 Acute kidney failure, unspecified; I95.9 Hypotension, unspecified; D64.9 Anemia, unspecified; I10 Essential (primary) hypertension; Z91.81 History of falling; M19.90 Unspecified osteoarthritis, unspecified site; L30.8 Other specified dermatitis; L30.9 Dermatitis, unspecified; Z79.82 Long term (current) use of aspirin; Z79.899 Other long term (current) drug therapy; E78.00 Pure hypercholesterolemia, unspecified; K52.89 Other specified noninfective gastroenteritis and colitis; E83.42 Hypomagnesemia; R53.1 Weakness; L50.9 Urticaria, unspecified; Z96.653 Presence of artificial knee joint, bilateral; Z98.51 Tubal ligation status; Z90.49 Acquired absence of other specified parts of digestive tract; E86.0 Dehydration; E78.5 Hyperlipidemia, unspecified; Z20.822 Contact with and (suspected) exposure to COVID-19; M81.0 Age-related osteoporosis without current pathological fracture; Z90.722 Acquired absence of ovaries, bilateral; W18.30XA Fall on same level, unspecified, initial encounter; Y92.002 Bathroom of unspecified non-institutional (private) residence as the place of occurrence of the external cause; Z86.010 Personal history of colon polyps; L50.8 Other urticaria
CPT/HCPCS: 36415; 71045; 80048; 80053; 81003; 82533; 83605; 83735; 83930; 83935; 84295; 84443; 84484; 85025; 86140; 87040; 93005; 97116-GP; 97161-GP; 97530-GP; 99284; A9270-GY; J0696; J1650; J2920; J2930; J3475; J7030; J7120; J7131; J7512; U0002

== ENCOUNTER 2022-12-15 13:25 | Emergency (ER) | payer MEDICARE, OTHER ==
[2022-12-15 14:05] LABS: PTT,PARTIAL THROMBOPLSTIN TIME 29.4 SEC (23.6-33.6)
[2022-12-15 14:16] LABS: CHLORIDE,CL 102 mmol/L (98-107); SODIUM,NA 136 mmol/L (136-145)
[2022-12-15 14:18] LABS: ESTIMATED GFR 41 mL/min (>=60)
[2022-12-15 14:28] LABS: CORONAVIRUS COVID-19 NAA NEGATIVE (NEGATIVE)
[2022-12-15 14:29] LABS: RESPIRATORY SYNCYTIAL VIR NAA NEGATIVE (NEGATIVE)
[2022-12-15 15:42] VITALS: BP 156/84; PULSE 89
== END 2022-12-15 15:40 | disposition home or self-care (01) ==
LOC: VM.ED 13:25
DX: R53.1 Weakness (principal); I10 Essential (primary) hypertension; R82.71 Bacteriuria; E78.00 Pure hypercholesterolemia, unspecified; Z79.899 Other long term (current) drug therapy; Z20.822 Contact with and (suspected) exposure to COVID-19
CPT/HCPCS: 0241U; 36415; 70450; 71045; 80053; 81001; 83605; 83735; 84100; 84443; 84484; 85025; 85610; 85730; 86140; 87086; 93005; 99284; 93010

== ENCOUNTER 2024-08-09 09:50 | Day surgery (SDC) | payer MEDICARE, OTHER ==
[~2024-08-09 09:50] MED LIST: Brimonidine 0.2% Ophth Soln 5 ML Bottle ONE; Dexamethasone/Neomycin/Polymyxin B Ophth Oint 3.5 GM Tube ONE; Lidocaine 1% 2 ML ONE; Phenyleprhine/Ketorolac 4 ML Vial ONE; Povidone-Iodine 5% Sterile Ophth Soln 30 ML Bottle ONE; Proparacaine 0.5% Ophth Soln 15 ML Bottle ONE
[2024-08-09] MEDS: Cyclopentolate 1% Opth Soln 2 ML Bottle EYELF SCH (10:13)
[2024-08-09] MEDS: Tropicamide 1% Ophth Soln 3 ML Bottle EYELF SCH (10:13)
[2024-08-09] MEDS: Phenylephrine 2.5% Ophth Soln 2 ML Bot EYELF SCH (10:13)
[2024-08-09] MEDS: Moxifloxacin 0.5% Ophth Soln 3 ML Bottle EYELF ONE ×2 (10:44→11:43)
[2024-08-09] MEDS ORDERED: fentaNYL 100 MCG/2 ML SDV ONE (10:52)
[2024-08-09] MEDS ORDERED: Midazolam 1 MG/ML 2 ML SDV ONE (10:52)
[2024-08-09] MEDS: Phenyleprhine/Ketorolac 4 ML Vial IO ONE (11:44)
[2024-08-09] MEDS: Balanced Salt Solution Ophth Irrig 500 ML Bottle IOCULAR ONE (11:44)
[2024-08-09] MEDS: Lidocaine 1% PF 2 ML SDV INFILT ONE (11:45)
[2024-08-09] MEDS: Chondroitin Sulfate/Hyaluronate Sodium Ophth Inj 0.5 ML Syringe IOCULAR ONE (11:46)
[2024-08-09] MEDS: Brimonidine 0.2% Ophth Soln 5 ML Bottle EYELF ONE (11:46)
[2024-08-09] MEDS: Dexamethasone/Neomycin/Polymyxin B Ophth Oint 3.5 GM Tube EYELF ONE (11:46)
[2024-08-09] MEDS: Tetracaine HCl/PF 0.5% 4 ML Bottle EYELF ONE (11:47)
[2024-08-09] MEDS: ceFAZolin 500 MG Vial IV ONE (11:47)
[2024-08-09] MEDS: acetaZOLAMIDE 500 MG Cap.ER PO ONE (12:15)
[2024-08-09 12:26] VITALS: BP 100/38; PULSE 65
== END 2024-08-09 12:40 | disposition home or self-care (01) ==
LOC: VM.SDS 09:50
PROVIDERS: ATTEND Ophthalmology
DX: H26.8 Other specified cataract (principal); H57.03 Miosis; I12.9 Hypertensive chronic kidney disease with stage 1 through stage 4 chronic kidney disease, or unspecified chronic kidney disease; N18.32 Chronic kidney disease, stage 3b; E78.00 Pure hypercholesterolemia, unspecified
CPT/HCPCS: 00142; 99100; A9270-GY; J0690; J1097; J2250; J3010; J3490

== ENCOUNTER 2024-11-08 09:40 | Day surgery (SDC) | payer MEDICARE, OTHER ==
[~2024-11-08 09:40] MED LIST changes: +Cyclopentolate 1% Opth Soln 2 ML Bottle EYERT SCH; +Moxifloxacin 0.5% Ophth Soln 3 ML Bottle EYERT SCH; +Phenylephrine 2.5% Ophth Soln 2 ML Bot EYERT SCH; +Tropicamide 1% Ophth Soln 3 ML Bottle EYERT SCH; +acetaZOLAMIDE 500 MG Cap.ER PO SCH
[2024-11-08] MEDS ORDERED: Midazolam 1 MG/ML 2 ML SDV ONE (09:45)
[2024-11-08] MEDS ORDERED: fentaNYL 100 MCG/2 ML SDV ONE (09:45)
[2024-11-08] MEDS: Phenylephrine 2.5% Ophth Soln 2 ML Bot EYERT SCH (09:51)
[2024-11-08] MEDS: Cyclopentolate 1% Opth Soln 2 ML Bottle EYERT SCH (09:52)
[2024-11-08] MEDS: Tropicamide 1% Ophth Soln 3 ML Bottle EYERT SCH (09:52)
[2024-11-08] MEDS: Moxifloxacin 0.5% Ophth Soln 3 ML Bottle EYERT SCH (10:15)
[2024-11-08] MEDS ORDERED: ceFAZolin 500 MG Vial ONE (10:30)
[2024-11-08] MEDS: Moxifloxacin 0.5% Ophth Soln 3 ML Bottle EYERT ONE (11:09)
[2024-11-08] MEDS: Balanced Salt Solution Ophth Irrig 500 ML Bottle IOCULAR ONE (11:10)
[2024-11-08] MEDS: Phenyleprhine/Ketorolac 4 ML Vial IO ONE (11:11)
[2024-11-08] MEDS: Lidocaine 1% PF 2 ML SDV INFILT ONE (11:11)
[2024-11-08] MEDS: Chondroitin Sulfate/Hyaluronate Sodium Ophth Inj 0.5 ML Syringe IOCULAR ONE (11:12)
[2024-11-08] MEDS: Povidone-Iodine 5% Sterile Ophth Soln 30 ML Bottle EYERT ONE (11:12)
[2024-11-08] MEDS: Dexamethasone/Neomycin/Polymyxin B Ophth Oint 3.5 GM Tube EYERT ONE (11:12)
[2024-11-08] MEDS: Brimonidine 0.2% Ophth Soln 5 ML Bottle EYERT ONE (11:12)
[2024-11-08] MEDS: Tetracaine HCl/PF 0.5% 4 ML Bottle EYERT ONE (11:13)
[2024-11-08] MEDS: acetaZOLAMIDE 500 MG Cap.ER PO SCH (11:51)
[2024-11-08 11:56] VITALS: BP 136/51; PULSE 68
== END 2024-11-08 12:00 | disposition home or self-care (01) ==
LOC: VM.SDS 09:40
PROVIDERS: ATTEND Ophthalmology
DX: H25.813 Combined forms of age-related cataract, bilateral (principal); H57.03 Miosis; H40.1414 Capsular glaucoma with pseudoexfoliation of lens, right eye, indeterminate stage; I12.9 Hypertensive chronic kidney disease with stage 1 through stage 4 chronic kidney disease, or unspecified chronic kidney disease; N18.32 Chronic kidney disease, stage 3b; E66.9 Obesity, unspecified; Z68.35 Body mass index [BMI] 35.0-35.9, adult; E78.00 Pure hypercholesterolemia, unspecified; Z87.891 Personal history of nicotine dependence
CPT/HCPCS: 00142; 99100; A9270-GY; J0690; J1097; J2250; J3010; J3490